=== PATIENT | female | born 2000 | race African-American/Black ===

== ENCOUNTER → 2022-11-25 11:27 | Outpatient (CLI) | payer OTHER, SELFPAY ==
[2022-11-25 12:15] LABS: Basophils # 0.1 K/mm3 (0-0.2); Basophils % 0.6 % (0.1-2.0); Eosinophils # 0.1 K/mm3 (0.0-0.4); Eosinophils % 0.9 % (0.1-12.0); Hematocrit 41.7 % (37.0-47.0); Hemoglobin 13.8 g/dL (12.2-16.2); Lymphocytes # 2.4 K/mm3 (0.7-4.5); Lymphocytes % 27.7 % (10-50); Mean Corpuscular HGB Conc 33.1 g/dL (31.8-35.4); Mean Corpuscular Hemoglobin 29.1 pg (27.0-31.2); Mean Corpuscular Volume 87.8 fl (81-99); Mean Platelet Volume 7.5 fl (7.4-10.4); Monocytes # 0.4 K/mm3 (0.1-1.0); Monocytes % 4.3 % (1.7-9.3); Neutrophils # 5.7 K/mm3 (1.8-7.8); Neutrophils % 66.5 % (37.0-80.0); Platelet Count 523 K/mm3 (142-424); Red Blood Count 4.76 M/mm3 (4.20-5.40); White Blood Count 8.6 K/mm3 (4.8-10.8)
[2022-11-26 08:26] LABS: HIV Screen 4th Generation wRfx Non Reactive (Non Reactive)
[2022-11-26 13:33] LABS: Rapid Plasma Reagin Ab Titer Non Reactive (NonRea<1:1)
[2022-12-03 23:05] LABS: Hepatitis B Surface Antigen NEGATIVE; Hepatitis C Antibody <0.1; Rubella Antibodies, IgG 1.58
== END ==
PROVIDERS: Visit Provider Obstetrics & Gynecology
DX: Z34.90 Encounter for supervision of normal pregnancy, unspecified, unspecified trimester (principal)
CPT/HCPCS: 36415; 84702; 85025; 86593; 86703; 86762; 86850; 87086; 87340; 87380; G0432

== ENCOUNTER → 2023-02-06 12:52 | Outpatient (CLI) | payer OTHER, SELFPAY ==
--- NOTE | 2023-02-06 12:52 | US_ITS ---
FINAL REPORT CLINICAL HISTORY: 20 week anatomy scan FINDINGS: There is a single live intrauterine gestation. Presentation is cephalic. The cervix is closed and measures 3.7 cm. Placenta is posterior. movement is noted. Heart rate is measured at 149 beats per minute. Three-vessel cord with satisfactory umbilical cord insertion. Four-chamber heart is noted. brain and ventricles are unremarkable. Chest and diaphragm are unremarkable. ABDOMEN: There is borderline/mild bilateral hydronephrosis. Stomach is unremarkable. SPINE: No anomalies identified. Both arms and legs noted. AMNIOTIC FLUID: Appropriate amount. MEASUREMENTS: ULTRASOUND AGE: 19 weeks 2 days. GESTATION AGE: 19 weeks 1 days. ESTIMATED WEIGHT: 284 g GROWTH PERCENTILE: 54% LMP percentile BPD: 4.3 cm corresponding with 19 weeks 1 day. OFD: 5.6 cm corresponding with 19 weeks 4 days. HC: 15.7 cm corresponding with 18 weeks 5 days. AC: 13.1 cm corresponding with 18 weeks 5 days. FL: 3.3 cm corresponding with 20 weeks 2 days. CEREBELLUM: 1.8 cm corresponding with 19 weeks 1 days. HUMERUS: 2.9 cm corresponding with 19 weeks 4 days. HC/AC: 1.21 CI: 77% FL/BPD: 76% FL/AC: 25% IMPRESSION: Single living IUP with an ultrasound age of 19 weeks 2 days. Borderline/mild bilateral hydronephrosis. Recommend follow-up. No other gross anomalies identified. Reviewed, Interpreted and Dictated by Juve Lee III, MD Transcribed by Arin Sher Authenticated and . [facility]
== END ==
PROVIDERS: PCP Obstetrics & Gynecology; Visit Provider Obstetrics & Gynecology
DX: Z34.90 Encounter for supervision of normal pregnancy, unspecified, unspecified trimester (principal); Z3A.20 20 weeks gestation of pregnancy
CPT/HCPCS: 76811

== ENCOUNTER → 2023-04-13 08:01 | Outpatient (CLI) | payer OTHER, SELFPAY ==
[2023-04-13 08:33] LABS: Glucose,Fasting 80 mg/dl (74-100)
[2023-04-13 11:14] LABS: Glucose 1 Hour 103 mg/dL (74-100)
== END ==
PROVIDERS: Visit Provider Obstetrics & Gynecology
DX: Z34.90 Encounter for supervision of normal pregnancy, unspecified, unspecified trimester (principal); Z3A.21 21 weeks gestation of pregnancy
CPT/HCPCS: 36415; 82951

== ENCOUNTER 2024-02-03 13:49 | Outpatient (CLI) | payer OTHER, SELFPAY ==
[2024-02-03 15:36] LABS: HCG,Quantitative 16945 mIU/ml (0-5.42)
[2024-02-04 12:14] LABS: Progesterone 6.6 ng/mL (.)
== END 2024-02-03 23:59 ==
LOC: LAB 13:51
PROVIDERS: Visit Provider Obstetrics & Gynecology
DX: N92.6 Irregular menstruation, unspecified (principal)
CPT/HCPCS: 36415; 84144; 84702

== ENCOUNTER 2024-02-29 16:20 | Outpatient (CLI) | payer OTHER, SELFPAY | END 2024-02-29 23:59 | LOC: LAB.DROPOF 16:21 | PROVIDERS: PCP Obstetrics & Gynecology; Visit Provider Obstetrics & Gynecology | DX: O26.891 Other specified pregnancy related conditions, first trimester (principal); Z3A.11 11 weeks gestation of pregnancy | CPT/HCPCS: 87086 ==

== ENCOUNTER 2024-03-04 15:45 | Outpatient (CLI) | payer OTHER, SELFPAY ==
[2024-03-04 16:17] LABS: Basophils # 0.1 K/mm3 (0-0.2); Basophils % 1.4 % (0.1-2.0); Eosinophils # 0.1 K/mm3 (0.0-0.4); Eosinophils % 1.3 % (0.1-12.0); Hematocrit 40.3 % (37.0-47.0); Hemoglobin 13.5 g/dL (12.2-16.2); Lymphocytes # 2.4 K/mm3 (0.7-4.5); Lymphocytes % 34.4 % (10-50); Mean Corpuscular HGB Conc 33.4 g/dL (31.8-35.4); Mean Corpuscular Hemoglobin 30.2 pg (27.0-31.2); Mean Corpuscular Volume 90.5 fl (81-99); Mean Platelet Volume 7.7 fl (7.4-10.4); Monocytes # 0.4 K/mm3 (0.1-1.0); Monocytes % 5.1 % (1.7-9.3); Neutrophils % 57.8 % (37.0-80.0); Platelet Count 441 K/mm3 (142-424); Red Blood Count 4.46 M/mm3 (4.20-5.40); Red Cell Distribution Width 13.1 % (11.5-17.5); White Blood Count 6.9 K/mm3 (4.8-10.8)
[2024-03-04 17:01] LABS: Alanine Aminotransferase 35 U/L (12-78); Albumin Level 3.9 g/dl (3.5-5.0); Albumin/Globulin Ratio 1.6 (1.1-1.8); Alkaline Phosphatase 61 U/L (38-126); Anion Gap 10.7 mEq/L (5-15); Aspartate Amino Transferase 32 U/L (14-36); Bilirubin,Total 0.3 mg/dl (0.2-1.3); Blood Urea Nitrogen 3 mg/dl (7-17); Calcium 9.8 mg/dl (8.4-10.2); Carbon Dioxide 22 mmol/L (22.0-30.0); Chloride 107 mmol/L (98-107); Estimated Glomerular Filt Rate 124 ml/min (>60); GFR (African American) 150 ML/MIN (>60); Globulin 2.5 g/dL (1.3-3.2); Glucose 111 mg/dl (74-100); Potassium 3.7 mmoL/L (3.5-5.1); Sodium 136 mmol/L (136-145); Total Protein,Serum 6.4 g/dl (6.3-8.2)
[2024-03-04 17:03] LABS: Creatinine,Urine Random 290 mg/dL (Not Estab.)
[2024-03-04 17:08] LABS: Microalbumin/Creatinine Ratio 10.4
[2024-03-06 09:24] LABS: Rubella Antibodies, IgG 1.41 index (Immune >0.99)
[2024-03-08 10:04] LABS: HIV Screen 4th Generation wRfx Non Reactive; Hepatitis B Surface Antigen Negative
[2024-03-08 10:05] LABS: Hepatitis C Antibody Non Reactive; Rapid Plasma Reagin Ab Titer Non Reactive
== END 2024-03-04 23:59 | disposition home or self-care (01) ==
LOC: LAB 15:46
PROVIDERS: Visit Provider Obstetrics & Gynecology
DX: O26.891 Other specified pregnancy related conditions, first trimester (principal); O16.3 Unspecified maternal hypertension, third trimester; Z3A.11 11 weeks gestation of pregnancy; Z87.59 Personal history of other complications of pregnancy, childbirth and the puerperium; B96.89 Other specified bacterial agents as the cause of diseases classified elsewhere
CPT/HCPCS: 36415; 80053; 82043; 82570; 85025; 86593; 86703; 86762; 86850; 87086; 87340; 87380; G0432

== ENCOUNTER 2024-05-03 10:32 | Outpatient (CLI) | payer OTHER, SELFPAY ==
--- NOTE | 2024-05-03 10:36 | US_ITS ---
PROCEDURE: US OB /MATERNAL DETAIL CLINICAL INDICATION: 20 wk+ Anatomy Scan-US OB COMPLETE COMPARISON: No exams were available for comparison FINDINGS: Transabdominal sonographic images of the pelvis were obtained. From her established due date she is 20 weeks 1 day. Single viable intrauterine gestation. Cephalic position. Placenta: Anteriorplacenta grade 1. There is an average amount of fluid. The cervix appears satisfactory. Closed and measuring 3.62 cm in length. Complete survey performed and was unremarkable on the submitted images as in PACS. No discrete anomalies identified on survey imaging by technologist. Active fetus. Three-vessel cord with satisfactory umbilical cord insertion. 4- chamber heart noted. Situs, aortic arch, LVOT, RVOT, three-vessel view appear normal. There is a small intracardiac echogenic foci. Survey of brain & ventricles Unremarkable. Cerebellum, thalamus, choroid plexus, cisterna magna appear normal. Face and neck survey unremarkable. Profile, nasion, lips and nose appeared normal. Diaphragm and chest views unremarkable. Abdomen: Both kidneys noted and unremarkable. Stomach and bladder noted and satisfactory. Spine: Survey of the spine satisfactory with no anomalies identified nor imaged. Cervical, thoracic, lower spine appear normal. Both arms and legs noted. Amniotic Fluid: Adequate. Measurements: Average ultrasound age 20weeks 1day. Estimated due date by ultrasound age 1009/19/2024. Estimated weight 341g BPD = 19weeks 3days HC = 19weeks 6days AC = 20weeks 0 days FL = 20weeks 6days Growth Percentile= 51 Heart Rate = 150bpm Cerebellum = 18weeks 6days Humerus = 20weeks 4days HC/AC is 1.17 FL/BPD is 0.77 FL/AC is 0.23 IMPRESSION: 1. Viable fetus in the cephalic presentation with an anterior placenta grade 1. 2. The fluid is within normal limits. 3. Anatomical scan appears normal. 4. There is a small intracardiac echogenic foci and the cardiac scan was not complete due to position. Would suggest repeat views in 2 weeks. 5. Would also repeat profile views in 2 weeks secondary to position as well. 6. biometry is consistent with the dates. Dictated by: Tristan Andino MD 05/03/2024 17:20 Tristan Andino MD in [place] 05/03/2024 17:20
== END 2024-05-03 23:59 | disposition home or self-care (01) ==
LOC: RAD 10:34
PROVIDERS: Visit Provider Obstetrics & Gynecology
DX: Z36.3 Encounter for antenatal screening for malformations (principal); O99.322 Drug use complicating pregnancy, second trimester; R82.5 Elevated urine levels of drugs, medicaments and biological substances; O16.2 Unspecified maternal hypertension, second trimester; Z3A.20 20 weeks gestation of pregnancy
CPT/HCPCS: 76811

== ENCOUNTER 2024-05-20 10:54 | Outpatient (CLI) | payer OTHER, SELFPAY ==
--- NOTE | 2024-05-20 10:57 | US_ITS ---
PROCEDURE: US OB FOLLOW UP CLINICAL INDICATION: follow up scan of anatomy COMPARISON: US US OB /MATERNAL DETAIL from 05/03/2024 FINDINGS: Transabdominal sonographic images of the pelvis were obtained. The following parameters are obtained: From her established due date she is 22weeks 4days Viable fetus in the breech presentation with an anterior placenta grade 1. The cervix measures 3.3 cm. heart rate: 160bpm bpm. Amniotic fluid: MVP 4.3 cm. No obvious anomalies evident. profile seen, nasion, nose, lips, stomach, bladder, kidneys, three-vessel cord, Appear normal. heart: Situs, four-chamber view, LVOT, RVOT, three-vessel view appear normal. spine: Cervical, thoracic and lower spine appear normal. brain: Choroid plexus, thalamus appear normal. An intracardiac echogenic foci is still present in the left ventricle. IMPRESSION: 1. Viable fetus in the breech presentation with an anterior placenta grade 1. 2. The fluid is within normal limits with an MVP of 4.3 cm. 3. Anatomical scan today appears normal. The profile, nasion, heart and spine are visualized and appear normal. 4. There continues to be a small intracardiac echogenic foci in the left ventricle. Dictated by: Tristan Andino MD 05/21/2024 08:26 Tristan Andino MD in [place] 05/21/2024 08:35
== END 2024-05-20 23:59 | disposition home or self-care (01) ==
LOC: RAD 10:55
PROVIDERS: Visit Provider Obstetrics & Gynecology
DX: Z36.2 Encounter for other antenatal screening follow-up (principal); Z3A.22 22 weeks gestation of pregnancy
CPT/HCPCS: 76816

== ENCOUNTER 2024-07-14 12:34 | Outpatient (CLI) | payer OTHER, SELFPAY | END 2024-07-14 23:59 | disposition home or self-care (01) | LOC: LAB 12:35 | PROVIDERS: Visit Provider Obstetrics & Gynecology | DX: Z02.9 Encounter for administrative examinations, unspecified (principal) ==

== ENCOUNTER 2024-08-11 13:03 | Outpatient (CLI) | payer OTHER, SELFPAY ==
[2024-08-11 13:40] LABS: Glucose,Fasting 98 mg/dl (74-100)
[2024-08-11 13:48] LABS: Basophils % 0.4 % (0.1-2.0); Eosinophils # 0.1 K/mm3 (0.0-0.4); Hematocrit 36.5 % (37.0-47.0); Hemoglobin 11.8 g/dL (12.2-16.2); Lymphocytes # 1.9 K/mm3 (0.7-4.5); Lymphocytes % 31.3 % (10-50); Mean Corpuscular HGB Conc 32.3 g/dL (31.8-35.4); Mean Corpuscular Hemoglobin 29.4 pg (27.0-31.2); Mean Corpuscular Volume 91.1 fl (81-99); Mean Platelet Volume 8.1 fl (7.4-10.4); Monocytes # 0.5 K/mm3 (0.1-1.0); Monocytes % 8.6 % (1.7-9.3); Neutrophils # 3.5 K/mm3 (1.8-7.8); Neutrophils % 57.7 % (37.0-80.0); Platelet Count 376 K/mm3 (142-424); Red Blood Count 4.01 M/mm3 (4.20-5.40); Red Cell Distribution Width 13.6 % (11.5-17.5); White Blood Count 6.1 K/mm3 (4.8-10.8)
[2024-08-11 15:34] LABS: Glucose 1 Hour 75 mg/dL (74-100)
[2024-08-12 13:32] LABS: Rapid Plasma Reagin Ab Titer Non Reactive titer (NonRea<1:1)
== END 2024-08-11 23:59 | disposition home or self-care (01) ==
LOC: LAB 13:04
PROVIDERS: Visit Provider Obstetrics & Gynecology
DX: Z34.90 Encounter for supervision of normal pregnancy, unspecified, unspecified trimester (principal)
CPT/HCPCS: 36415; 82951; 85025; 86593